=== PATIENT | female | born 1970 | race African-American/Black ===

== ENCOUNTER 2024-04-10 10:40 | Inpatient (IN) | payer OTHER ==
[~2024-04-10] VITALS: Ht 180.3 cm; Wt 94.6 kg
--- NOTE | 2024-04-10 11:04 | ED.PDOC ---
GI ASSESSMENT HPI Comments 54y F who presents to the ED for chief complaint of abdominal pain. Pt states she has been having abdominal pain for the past 3 weeks. Pt states her pain is located by the lower pelvic area, radiating to the lower back, constant, rating the pain 6/10, with no associated exacerbating or relieving factors. pt has associated chills, weakness but otherwise denies nausea, vomiting, diarrhea, fever, cough, dysuria or hematuria. Pt denies any fall or injury. Pt denies any recent sick contacts. Pt otherwise denies any other symptoms at this time. Chief Complaint: Abdominal Pain Time Seen by MD: 11:00 Reviewed Notes: Nurses Notes, Medications Allergies: Coded Allergies: NO KNOWN ALLERGIES (Unverified , 04/10/24) Information Source: Patient Mode of Arrival: Ambulatory Brought in by: self Timing: Weeks Duration: Since onset Prehospital treatment: None Quality: None Vomitus: None Stool: Normal Severity: Moderate Recent: None Recent Hx of: None Pain Location: Diffuse Modifying Factors: Nothing Associated sign and symptoms: Abdominal Pain, Other (chills) Past Medical History PAST MEDICAL HISTORY: DM Surgical History: Hernia Repair KEY ACCOUNT DIRECTOR History: Denies all KEY ACCOUNT DIRECTOR Hx Family History Family History: Family hx of DM Social History Smoker: Non-Smoker Alcohol: Occasionally Drugs: Denies Drug Use Lives In: Home Constitutional: reports: chills, weakness; denies: diaphoresis, fatigue, fever, malaise, sweats, others EENTM: denies: blurred vision, double vision, ear bleeding, ear discharge, ear drainage, ear pain, ear ringing, eye pain, eye redness, hearing loss, mouth pain, mouth swelling, nasal discharge, nose bleeding, nose congestion, nose pain, photophobia, tearing, throat pain, throat swelling, voice changes, others Respiratory: denies: cough, hemoptysis, orthopnea, SOB at rest, shortness of breath, SOB with excertion, stridor, wheezing, others Cardiovascular: denies: chest pain, dizzy spells, diaphoresis, Dyspnea on exertion, edema, irregular heart beat, left arm pain, lightheadedness, palpit ations, PND, syncope, others Gastrointestinal: reports: abdominal pain; denies: abdomen distended, blood streaked bowels, diarrhea, dysphagia, difficulty swallowing, hematemesis, melena, nausea, poor appetite, poor fluid intake, rectal bleeding, rectal pain, vomiting, others Genitourinary: denies: abnormal vagina bleeding, burning, dyspareunia, dysuria, flank pain, frequency, hematuria, incontinence, pain, , vagina discharge, urgency, others Neurological: denies: dizziness, fainting, headache, left sided numbness, left sided weakness, numbness, paresthesia, pre-existing deficit, right sided numbness, right sided weakness, seizure, speech problems, tingling, tremors, weakness, others Musculoskeletal: denies: back pain, gout, joint pain, joint swelling, muscle pain, muscle stiffness, neck pain, others Integumetry: denies: bruises, change in color, change in hair/nails, dryness, laceration, lesions, lumps, rash, wounds, others Allergic/Immunocompromised: denies: Difficulty Healing, Frequent Infections, Hives, Itching, others Hematologic/Lymphatic: denies: anemia, blood clots, easy bleeding, easy bruising, swollen glands, others Endocrine: denies: excessive hunger, excessive sweating, excessive thirst, excessive urination, flushing, intolerance to cold, intolerance to heat, unexplained weight gain, unexplained weight loss, others Psychiatric: denies: anxiety, bipolar disorder, depression, hopeless, panic disorder, schizophrenia, sleepless, suicidal, others All Other Systems: Reviewed and Negative Physical Exam General Appearance: Moderate Distress HEENT: Normal ENT Inspection, Pharynx Normal, TMs Normal Neck: Full Range of Motion, Non-Tender, Normal, Normal Inspection Respiratory: Chest Non-Tender, Lungs Clear, No Accessory Muscle Use, No Respiratory Distress, Normal Breath Sounds Cardiovascular: No Edema, No JVD, No Murmur, No Gallop, Normal Peripheral Pulses, Regular Rate/Rhythm Breast Exam: Deferred Gastrointestinal: No Organomegaly, No Pulsatile Mass, Normal Bowel Sounds, Soft, Suprapubic, Tenderness Genitalia: Deferred Pelvic: Deferred Rectal: Deferred Extremities: No calf tenderness, Normal capillary refill, Normal inspection, Normal range of motion, Non-tender, No pedal edema Musculoskeletal : Apperance: Normal Neurologic: Alert, signal manager II-XII nml as Tested, No Motor Deficits, Normal Affect, Normal Mood, No Sensory Deficits Cerebellar Function: Normal Reflexes: Normal Skin: Dry, Normal Color, Warm Lymphatic: No Adenopathy Was a procedure done? Was a procedure done?: No GI differential Dx Differential Diagnosis: Cholangitis, Cholecystitis, Constipation, Gastroenteritis, Pancreatitis, UTI, Dehydration, Kidney Stone X-Ray, Labs, Meds, VS Vital Signs Date Time Temp Pulse Resp B/P (MAP) Pulse Ox O2 Delivery O2 Flow Rate FiO2 04/10/24 10:52 97.7 95 18 107/80 (89) 100 Lab Test 04/10/24 10:58 04/10/24 10:31 Range/Units White Blood Count 7.6 4.4-10.8 10^3/uL Red Blood Count 5.06 4.0-5.20 10^6/uL Hemoglobin 15.7 12.2-16.2 g/dL Hematocrit 46.7 H 36.0-46.0 % Mean Corpuscular Volume 92.4 80.0-100.0 fL Mean Corpuscular Hemoglobin 30.9 28.0-32.0 pg Mean Corpuscular Hemoglobin Concent 33.5 32.0-36.0 g/dL Red Cell Distribution Width 13.4 11.8-14.3 % Platelet Count 188 140-450 10^3/uL Mean Platelet Volume 9.0 6.9-10.8 fL Neutrophils (%) (Auto) 62.0 37.0-80.0 % Lymphocytes (%) (Auto) 29.6 10.0-50.0 % Monocytes (%) (Auto) 7.5 0.0-12.0 % Eosinophils (%) (Auto) 0.6 0.0-7.0 % Basophils (%) (Auto) 0.3 0.0-2.0 % Neutrophils # (Auto) 4.7 1.6-8.6 10 ^3/uL Lymphocytes # (Auto) 2.3 0.4-5.4 10 ^3/uL Monocytes # (Auto) 0.6 0-1.3 10 ^3/uL Eosinophils # (Auto) 0 0-0.8 10 ^3/uL Basophils # (Auto) 0 0-0.2 10 ^3/uL Nucleated Red Blood Cells 0.1 % Sodium Level 138 136-145 mmol/L Potassium Level 4.2 3.5-5.1 mmol/L Chloride Level 106 98-107 mmol/L Carbon Dioxide Level 27 20-31 mmol/L Anion Gap 5 5-15 Blood Urea Nitrogen 14 9-23 mg/dL Creatinine 0.92 0.550-1.02 mg/dL Glomerular Filtration Rate Calc 74 >90 mL/min BUN/Creatinine Ratio 15.2 10.0-20.0 Serum Glucose 113 H 74-106 mg/dL Calcium Level 10.6 H 8.7-10.4 mg/dL Total Bilirubin 0.6 0.2-1.0 mg/dL Aspartate Amino Transferase (AST) 28 13-40 U/L Alanine Aminotransferase (ALT) 60 H 7-40 U/L Alkaline Phosphatase 78 46-116 U/L Total Protein 7.8 5.7-8.2 g/dL Albumin 4.6 3.2-4.8 g/dL Lipase 48 12-53 U/L Urine Color Yellow Yellow Urine Clarity Clear Clear Urine pH 5.5 5.0-9.0 Urine Specific [place] 1.020 1.001-1.035 Urine Protein Negative Negative Urine Ketones Negative Negative Urine Blood Negative Negative /uL Urine Nitrite Negative Negative Urine Bilirubin Negative Negative Urine Urobilinogen Normal Negative mg/dL Urine Leukocyte Esterase Negative Negative /uL Urine RBC <1 0 - 4 /hpf Urine WBC 1 0 - 5 /hpf Urine Squamous Epithelial Cells Few <5 /hpf Urine Bacteria None seen None Seen /hpf Urine Glucose 3+ H Normal mg/dL PROCEDURE(s): ABPL - CT AB PEL WO CON-NO ORAL OR IV IMPRESSION: 1. There is no acute process in the abdomen and pelvis. 2. Large bulky fibroid uterus. Further evaluation with dedicated pelvic ult rasound is recommended. The patient's urine test is negative The patient's CBC and chemistry panel is within normal limits At this time, the patient will be admitted to the hospitalist with significant pain. The patient was being given morphine for the pain and Zofran for the nausea At this time, the patient understands and agrees with the management. Images Reviewed?: Images reviewed and evaluated by me Time of 1ST Reevaluation: 11:30 Reevaluation 1ST: Unchanged Patient Education/Counseling: Diagnosis, Treatment, Prognosis Family Education/Counseling: No Family Present Additional Information - I reviewed the following notes from patient's past medical encounters: - The following tests were ordered, and results were reviewed by me: (Labs, X- Ray, EKG): cbc, cmp, lipase, UA, CT abdomen and pelvis without contrast, - Additional information was gathered from interviewing the following independent Historian: (Family, Other Providers, EMT): none - I reviewed and agreed with the following test results read by other provider: (X-ray, CT, US): radiologist - I discussed treatments and results with medical personnel and: (consultants, family): none Departure 1 Departure Time of Disposition: 12:35 Impression: Primary Impression: Intractable abdominal pain Additional Impression: Fibroid uterus Qualified Codes: D25.9 - Leiomyoma of uterus, unspecified Disposition: ADMITTED INPATIENT Admit to: Med Surg Condition: Fair Critical Care Note Critical Care Time?: No Stability Stability form required: No Heart Score Heart Score: Heart Score Response (Comments) Value History N/A 0 EKG N/A 0 Age N/A 0 Risk Factors N/A 0 Troponin N/A 0 Total 0 I personally scribed for CHLOE NGUYEN MD ([email or web address]) on 04/10/24 at 11:04. Electronically submitted by Michelle Ruiz ([employer]). I personally scribed for CHLOE NGUYEN MD ([email or web address]) on 04/10/24 at 11:27. Electronically submitted by Michelle Ruiz ([email or web address] CHLOE NGUYEN MD Apr 10, 2024 11:04
[2024-04-10 11:14] LABS: Basophils # (auto) 0 10 ^3/uL (0-0.2); Basophils % (auto) 0.3 % (0.0-2.0); Eosinophils # (auto) 0 10 ^3/uL (0-0.8); Eosinophils % (auto) 0.6 % (0.0-7.0); Hematocrit 46.7 % (36.0-46.0); Hemoglobin 15.7 g/dL (12.2-16.2); Lymphocytes # (auto) 2.3 10 ^3/uL (0.4-5.4); Lymphocytes % (auto) 29.6 % (10.0-50.0); Mean Corpuscular Hemoglobin 30.9 pg (28.0-32.0); Mean Corpuscular Hgb Conc. 33.5 g/dL (32.0-36.0); Mean Corpuscular Volume 92.4 fL (80.0-100.0); Monocytes # (auto) 0.6 10 ^3/uL (0-1.3); Monocytes % (auto) 7.5 % (0.0-12.0); Neutrophils # (auto) 4.7 10 ^3/uL (1.6-8.6); Nucleated Red Blood Cells % 0.1 %; Platelet Count (auto) 188 10^3/uL (140-450); Red Blood Cells 5.06 10^6/uL (4.0-5.20); Red Cell Distribution Width 13.4 % (11.8-14.3); White Blood Cell 7.6 10^3/uL (4.4-10.8)
--- NOTE | 2024-04-10 11:24 | DVH ---
CT ABDOMEN AND PELVIS WITHOUT CONTRAST CLINICAL HISTORY: pain TECHNIQUE: Multiple contiguous axial images of the abdomen and pelvis without intravenous contrast. The images were reformatted degenerate coronal and sagittal reconstructions. All CT scans at this medical facility are performed using dose modulation techniques as appropriate t o a performed exam including the following:Automated exposure control was utilized; adjustment of the MA and/or KV according to patient size; and use of iterative reconstruction technique. Radiation Dose Information: CT Dose: CTDI volume is 10.87 mGy. Dose-length product is 575.29 mGy*cm Comparison: None FINDINGS: Evaluation of the abdomen and pelvis is limited without intravenous contrast. The liver, gallbladder, pancreas, kidneys, adrenal glands, and spleen appear within normal limits. There is no gross evidence of abdominal lymphadenopathy. There is no free fluid or free air. The stomach grossly appears unremarkable. The small and large bowel loops demonstrate normal caliber . The abdominal aorta and IVC appear within normal limits. The bladder is decompressed limiting evaluation. There is a large bulky uterus with multiple leiomyom as, the largest measuring approximately 7.2 cm.. There is no gross evidence of a pelvic mass. There is no free fluid collection. Lung bases are clear. There is no acute osseous abnormality. IMPRESSION: 1. There is no acute process in the abdomen and pelvis. 2. Large bulky fibroid uterus. Further evaluation with dedicated pelvic ultrasound is recommended. HS:Y
[2024-04-10 11:46] LABS: Anion Gap 5 (5-15); BUN/Creatinine Ratio 15.2 (10.0-20.0); Blood Urea Nitrogen 14 mg/dL (9-23); Carbon Dioxide 27 mmol/L (20-31); Chloride 106 mmol/L (98-107); Potassium 4.2 mmol/L (3.5-5.1); Sodium 138 mmol/L (136-145); Total Protein 7.8 g/dL (5.7-8.2)
[2024-04-10 11:47] LABS: Alanine Aminotransferase 60 U/L (7-40); Calcium 10.6 mg/dL (8.7-10.4); Glucose 113 mg/dL (74-106)
[2024-04-10 11:48] LABS: Albumin 4.6 g/dL (3.2-4.8); Alkaline Phosphatase 78 U/L (46-116); Aspartate Aminotransferase 28 U/L (13-40); Bilirubin, Total 0.6 mg/dL (0.2-1.0)
[2024-04-10 12:00] LABS: Lipase 48 U/L (12-53)
[2024-04-10 12:05] LABS: Urine Bacteria None Seen /hpf (None Seen)
[2024-04-10 12:26] LABS: Urine Blood Negative /uL (Negative); Urine Clarity Clear (Clear); Urine Color Yellow (Yellow); Urine Protein, UAD Negative (Negative); Urine Squamous Epithelial Cell FEW /hpf (<5); Urine Urobilinogen Normal (Negative); Urine WBC 1 /hpf (0 - 5); Urine pH 5.5 (5.0-9.0)
--- NOTE | 2024-04-10 13:05 | DVHHP2 ---
History of Present Illness Reason for Visit: abd pain History of Present Illness 54-year-old female past medical history diabetes surgical history hernia repair myomectomy with clips in the fibroids chief complaint patient states she has been dealing with abdominal pain pelvic pain for three weeks now she states the pain is in the right lower quadrant radiates to her right flank. She states the pain is worse with moving and bending down to her toes she states when she has been attempting told her pain that is more severe. Patient denies vomiting denies any fever denies any chest pain denies any shortness of the breath patient denies any urinary symptoms no flank pain. Patient denies any vaginal bleeding no pain with sex no odor no discharge. When evaluating patient's labs and imaging CBC was unremarkable glucose was 113 UA showed glucose, no bacteria illness CT scan of the abdomen pelvis showed bulky fibroid otherwise unremarkable. With these findings we will admit patient and ask for litigator consult Past Medical History Diabetes Past Surgical History Hernia repair clips in the fibroid from a myomectomy, fibroid Family History Reviewed, non-contributory to the management of this case. Past Social History Patient does drink occasionally but denies drug or alcohol use Review of Systems Constitutional: No: Fever, Chills, Sweats, Weakness, Malaise, Other Eyes: No: Pain, Vision change, Conjunctivae inflammation, Eyelid inflammation, Other, Redness ENT: No: Ear pain, Ear discharge, Nose pain, Nose discharge, Nose congestion, Mouth pain, Mouth swelling, Throat pain, Throat swelling, Other Respiratory: No: Cough, Dry, Shortness of breath, SOB with excertion, Wheezing, Hemoptysis, Pleuritic Pain, Sputum, Wheezing, Other Cardiovascular: No: Chest Pain, Palpitations, Orthopnea, Paroxysmal Noc. Dyspnea, Edema, Lt Headedness, Other Gastrointestinal: Nausea, Vomiting, Abdominal Pain; No: Diarrhea, Constipation, Melena, Hematochezia, Other Genitourinary: No Dysuria, No Frequency, No Incontinence, No Hematuria, No Retention, No Other Musculoskeletal: No: other, neck pain, shoulder pain, arm pain, back pain, hand pain, leg pain, foot pain Skin: No: Rash, Lesions, Jaundice, Bruising, Other Neurological: No: Weakness, Numbness, Incoordination, Change in speech, Confusion, Seizures, Other Allergies: Coded Allergies: NO KNOWN ALLERGIES (Unverified , 04/10/24) Exam Vital Signs Vital Signs Date Time Temp Pulse Resp B/P (MAP) Pulse Ox O2 Delivery O2 Flow Rate FiO2 04/10/24 10:52 97.7 95 18 107/80 (89) 100 General Appearance: Alert, Oriented X3, Cooperative, No acute distress HEENT: Atraumatic, PERRLA, EOMI, Mucous membr. moist/pink Respiratory: Clear to auscultation, Normal air movement Cardiovascular: Regular rate, Normal S1, Normal S2, No murmurs Abdominal: Normal bowel sounds, Soft, No hepatospenomegaly, No masses, Other (+guarding and rebound tenderness) Extremities: No clubbing, No cyanosis, No edema, Normal pulses, No tenderness/swelling Skin: No rashes, No breakdown, No significant lesion Neuro: Normal gait, Normal speech, Strength at 5/5 X4 ext, Normal tone, Sensation intact, Cranial nerves 3-12 NL Psych/Mental Status: Mental status NL, Mood NL Labs/Xrays CT scan of the abdomen pelvis shows bulky fibroid I reviewed labs, imaging CT scan abdomen pelvis, EKG and all diagnostic studies on this patient from ED records and the medical chart Labs Test 04/10/24 10:58 04/10/24 10:31 Range/Units White Blood Count 7.6 4.4-10.8 10^3/uL Red Blood Count 5.06 4.0-5.20 10^6/uL Hemoglobin 15.7 12.2-16.2 g/dL Hematocrit 46.7 H 36.0-46.0 % Mean Corpuscular Volume 92.4 80.0-100.0 fL Mean Corpuscular Hemoglobin 30.9 28.0-32.0 pg Mean Corpuscular Hemoglobin Concent 33.5 32.0-36.0 g/dL Red Cell Distribution Width 13.4 11.8-14.3 % Platelet Count 188 140-450 10^3/uL Mean Platelet Volume 9.0 6.9-10.8 fL Neutrophils (%) (Auto) 62.0 37.0-80.0 % Lymphocytes (%) (Auto) 29.6 10.0-50.0 % Monocytes (%) (Auto) 7.5 0.0-12.0 % Eosinophils (%) (Auto) 0.6 0.0-7.0 % Basophils (%) (Auto) 0.3 0.0-2.0 % Neutrophils # (Auto) 4.7 1.6-8.6 10 ^3/uL Lymphocytes # (Auto) 2.3 0.4-5.4 10 ^3/uL Monocytes # (Auto) 0.6 0-1.3 10 ^3/uL Eosinophils # (Auto) 0 0-0.8 10 ^3/uL Basophils # (Auto) 0 0-0.2 10 ^3/uL Nucleated Red Blood Cells 0.1 % Sodium Level 138 136-145 mmol/L Potassium Level 4.2 3.5-5.1 mmol/L Chloride Level 106 98-107 mmol/L Carbon Dioxide Level 27 20-31 mmol/L Anion Gap 5 5-15 Blood Urea Nitrogen 14 9-23 mg/dL Creatinine 0.92 0.550-1.02 mg/dL Glomerular Filtration Rate Calc 74 >90 mL/min BUN/Creatinine Ratio 15.2 10.0-20.0 Serum Glucose 113 H 74-106 mg/dL Calcium Level 10.6 H 8.7-10.4 mg/dL Total Bilirubin 0.6 0.2-1.0 mg/dL Aspartate Amino Transferase (AST) 28 13-40 U/L Alanine Aminotransferase (ALT) 60 H 7-40 U/L Alkaline Phosphatase 78 46-116 U/L Total Protein 7.8 5.7-8.2 g/dL Albumin 4.6 3.2-4.8 g/dL Lipase 48 12-53 U/L Urine Color Yellow Yellow Urine Clarity Clear Clear Urine pH 5.5 5.0-9.0 Urine Specific [place] 1.020 1.001-1.035 Urine Protein Negative Negative Urine Ketones Negative Negative Urine Blood Negative Negative /uL Urine Nitrite Negative Negative Urine Bilirubin Negative Negative Urine Urobilinogen Normal Negative mg/dL Urine Leukocyte Esterase Negative Negative /uL Urine RBC <1 0 - 4 /hpf Urine WBC 1 0 - 5 /hpf Urine Squamous Epithelial Cells Few <5 /hpf Urine Bacteria None seen None Seen /hpf Urine Glucose 3+ H Normal mg/dL Assessment/Plan Assessment/Plan acute intractable pelvic pain CT scan shows acute fibroid ordered morphine as needed diet as can tolerated acute uterine fibroid no abscess will need to evaluate for torsion found on ct scan ordered morphine as needed for pain litigator consult fu results ordered us fu results chronic problems dm fen/ppx diet scd ivf no gi ppx since no hx of gerds or gi bleed plan admit to medicine litigator evaluation Plan discussed with: Patient Date of Service: Apr 10, 2024 Billing Provider: NEENA CHANDRA DNP Common Visit Codes: [id number] INP/OBS CARE (HIGH) NEENA CHANDRA DNP Apr 10, 2024 13:05
[2024-04-10] MEDS ORDERED: NITROGLYCERIN 0.4 MG SL TAB SL PRN (14:15)
[2024-04-10] MEDS ORDERED: ONDANSETRON HCL 4 MG/2 ML VIAL IV PRN (14:15)
[2024-04-10] MEDS ORDERED: DOCUSATE SOD 100 MG CAP PO PRN (14:15)
--- NOTE | 2024-04-10 14:33 | DVHINCON2 ---
DATE OF CONSULTATION: 04/10/2024 REASON FOR CONSULTATION: Enlarged fibroid uterus. HISTORY OF PRESENT ILLNESS: The patient is a 54-year-old 5, para 4, admitted for abdominal pain. The patient has diabetes. She just moved down the hill. She states she had uterine artery embolization in 2022. Last Pap was 6 months ago. Denies having any vaginal bleeding or abnormal uterine bleeding. The patient believes she is menopausal. PAST MEDICAL HISTORY: Diabetes. PAST SURGICAL HISTORY: Uterine artery embolization. SOCIAL HISTORY: None. FAMILY HISTORY: None. OBSTETRIC AND GYNECOLOGIC HISTORY: Four normal vaginal deliveries. REVIEW OF SYSTEMS: Consistent with HPI. PHYSICAL EXAMINATION: VITAL SIGNS: Stable, afebrile. HEENT: Within normal limits. CARDIOVASCULAR: Regular rate and rhythm. LUNGS: Clear to auscultation. BREASTS: Symmetrical. No masses. ABDOMEN: Soft, midline mass palpated. PELVIC: The patient refuses pelvic examination at this point. Uterus is enlarged. EXTREMITIES: There is no clubbing, cyanosis or edema. IMPRESSION: * Leiomyomatous uterus, status post uterine artery embolization in 2022. * Abdominal pain. * Diabetes. RECOMMENDATION: Obtained pelvic ultrasound. Abdominal pain does not appear to be originating from the fibroid uterus. Follow up outpatient. We will sign off. Thank you very much for this consultation. DO NIRU Doan TID: [id number] RECEIPT: [id number]
--- NOTE | 2024-04-10 14:56 | DVH ---
TRANSABDOMINAL PELVIC ULTRASOUND HISTORY: fibroid TECHNIQUE: Multiple tranabdominal sonographic images of the pelvis were obtained. FINDINGS: The uterus measures 15.1 x 12.3 x 7.1 cm. The uterine myometrium appears diffusely heterogeneous. T here are multiple leiomyomas including a large 6.7 x 6.1 cm leiomyoma in the central body effacing th e endometrial stripe which is not adequately seen. The right and left ovaries are not adequately seen on the current study. There is no free fluid in the cul-de-sac.. IMPRESSION: 1. Large bulky uterus with multiple leiomyomas, the largest in the central body measuring 6.7 cm. The endometrial stripe is not adequately seen. 2. Nonvisualization of the ovaries. HS:Y
[2024-04-10 15:31] VITALS: BP 113/77; PULSE 88; RESP 16; TEMP 97.9; O2SAT 100
[2024-04-10] MEDS: SODIUM CHLORIDE 0.9% 1,000 ML IV SCH (16:27)
[2024-04-10 16:29] VITALS: PULSE 80; RESP 16
[2024-04-10 20:00] VITALS: BP 113/73; PULSE 77; RESP 18; TEMP 98.7; O2SAT 95
[2024-04-10] MEDS ORDERED: DEXTROSE (50%) 50ML SYRG IV PRN (20:00)
[2024-04-10] MEDS: ACCU-CHEK COMFORT CURVE STRIP VI SCH (21:04)
[2024-04-10] MEDS: InsuLIN REG 1unit/0.01ml Soln (100units/ml) SC SCH (21:13)
[2024-04-10 23:13] VITALS: BP 114/75; PULSE 76; RESP 18; TEMP 98.3; O2SAT 92
[2024-04-11] VITALS (8 sets, daily range): BP systolic 105–114; BP diastolic 63–77; PULSE 68–85; RESP 16–20; TEMP 98–98.6; O2SAT 91–98
[2024-04-11] MEDS: MORPHINE SULFATE INJ 2 MG/ml SYRG IV PRN (00:53)
[2024-04-11] MEDS ORDERED: METF-370 PO (03:21)
[2024-04-11] MEDS ORDERED: INSLANTI SC (03:24)
[2024-04-11] MEDS ORDERED: INSU100I54 SC (03:24)
[2024-04-11 06:07] LABS: Basophils # (auto) 0 10 ^3/uL (0-0.2); Basophils % (auto) 0.3 % (0.0-2.0); Eosinophils # (auto) 0 10 ^3/uL (0-0.8); Eosinophils % (auto) 0.6 % (0.0-7.0); Hematocrit 41.4 % (36.0-46.0); Hemoglobin 14.1 g/dL (12.2-16.2); Lymphocytes % (auto) 26.1 % (10.0-50.0); Mean Corpuscular Hemoglobin 31.2 pg (28.0-32.0); Monocytes # (auto) 0.7 10 ^3/uL (0-1.3); Monocytes % (auto) 9.8 % (0.0-12.0); Neutrophils # (auto) 4.7 10 ^3/uL (1.6-8.6); Neutrophils % (auto) 63.2 % (37.0-80.0); Platelet Count (auto) 155 10^3/uL (140-450); Red Cell Distribution Width 13.5 % (11.8-14.3); White Blood Cell 7.5 10^3/uL (4.4-10.8)
[2024-04-11 06:41] LABS: Alkaline Phosphatase 68 U/L (46-116); Anion Gap 7 (5-15); Aspartate Aminotransferase 25 U/L (13-40); BUN/Creatinine Ratio 14.7 (10.0-20.0); Bilirubin, Total 0.5 mg/dL (0.2-1.0); Blood Urea Nitrogen 11 mg/dL (9-23); Calcium 9.9 mg/dL (8.7-10.4); Carbon Dioxide 23 mmol/L (20-31); Potassium 4.3 mmol/L (3.5-5.1); Sodium 139 mmol/L (136-145)
[2024-04-11 06:42] LABS: Total Protein 6.6 g/dL (5.7-8.2)
[2024-04-11 06:44] LABS: Alanine Aminotransferase 46 U/L (7-40); Chloride 109 mmol/L (98-107); Glucose 133 mg/dL (74-106)
[2024-04-11] MEDS: InsuLIN REG 1unit/0.01ml Soln (100units/ml) SC SCH (07:05)
--- NOTE | 2024-04-11 13:12 | DVHPN2 ---
Reviewed: Care Plan, H&P, Labs, Medications, Previous Orders, Radiology Changes from previous H/P or p: No Changes Eyes: No Pain, No Vision change, No Conjunctivae inflammation, No Eyelid inflammation, No Other, No Redness ENT: No Ear pain, No Ear discharge, No Nose pain, No Nose discharge, No Nose congestion, No Mouth pain, No Mouth swelling, No Throat pain, No Throat swelling, No Other Cardiovascular: No Chest Pain, No Palpitations, No Orthopnea, No Paroxysmal Noc. Dyspnea, No Edema, No Lt Headedness, No Other Respiratory: No Cough, No Dry, No Shortness of breath, No SOB with excertion, No Wheezing, No Hemoptysis, No Pleuritic Pain, No Sputum, No Other Gastrointestinal: Nausea, Vomiting, Abdominal Pain; No Diarrhea, No Constipation, No Melena, No Hematochezia, No Other Genitourinary: No Dysuria, No Frequency, No Incontinence, No Hematuria, No Retention, No Other Musculoskeletal: No other, No neck pain, No shoulder pain, No arm pain, No back pain, No hand pain, No leg pain, No foot pain Skin: No Rash, No Lesions, No Jaundice, No Bruising, No Other Objective Vitals Vital Signs Date Time Temp Pulse Resp B/P (MAP) Pulse Ox O2 Delivery O2 Flow Rate FiO2 04/11/24 11:29 83 16 105/77 04/11/24 08:49 98.3 93 98.3 04/11/24 00:46 Room Air* 0 21 Intake/Output Intake and Output 04/11/24 07:00 Intake Total 0 ml Balance 0 ml Intake Oral 0 ml # Voids 1 Medications Current Medications Medications Dose Ordered Sig/Bob Route Start Time Stop Time Status Last Admin Dose Admin Sodium Chloride 1,000 ml @ 120 mls/hr Q8H20M IV 04/10/24 14:15 04/11/24 11:10 120 MLS/HR Ondansetron HCl 4 mg Q4HP PRN IV 04/10/24 14:15 Docusate Sodium 100 mg BIDPRN PRN PO 04/10/24 14:15 Morphine Sulfate 2 mg Q4HPRN PRN IV 04/10/24 14:15 04/11/24 11:29 2 MG Nitroglycerin 0.4 mg Q5MINP PRN SL 04/10/24 14:15 Diagnostic Test (Pha) 1 strip ACHS 04/10/24 22:00 04/11/24 12:41 1 STRIP Insulin Human Regular HS SC 04/10/24 22:00 04/10/24 21:13 2 UNITS Insulin Human Regular AC SC 04/11/24 07:00 04/11/24 07:05 2 UNITS Dextrose 50 ml UD PRN IV 04/10/24 20:00 Laboratory Results Laboratory Tests 04/11/24 05:43 Chemistry Test 04/11/24 05:43 Albumin 4.0 g/dL (3.2-4.8) Calcium Level 9.9 mg/dL (8.7-10.4) Total Protein 6.6 g/dL (5.7-8.2) LFT Test 04/11/24 05:43 Alanine Aminotransferase (ALT) 46 U/L (7-40) H Alkaline Phosphatase 68 U/L (46-116) Aspartate Amino Transferase (AST) 25 U/L (13-40) Total Bilirubin 0.5 mg/dL (0.2-1.0) Urinalysis Test 04/10/24 10:31 Urine Color Yellow (Yellow) Urine Clarity Clear (Clear) Urine pH 5.5 (5.0-9.0) Urine Specific [place] 1.020 (1.001-1.035) Urine Protein Negative (Negative) Urine Ketones Negative (Negative) Urine Blood Negative /uL (Negative) Urine Nitrite Negative (Negative) Urine Bilirubin Negative (Negative) Urine Urobilinogen Normal mg/dL (Negative) Urine Leukocyte Esterase Negative /uL (Negative) Urine RBC <1 /hpf (0 - 4) Urine WBC 1 /hpf (0 - 5) Urine Squamous Epithelial Cells Few /hpf (<5) Urine Bacteria None seen /hpf (None Seen) Urine Glucose 3+ mg/dL (Normal) H Labs and/or images reviewed: Labs reviewed by me, Image(s) reviewed by me Assessment/Plan Assessment/Plan Acute Abdominal pain unknown etiology: Labs normal CT abdomen pelvis without contrast shows fibroids Consult for GI Dr. Balbuena Multiple fibroids: Table Tender Sludge consult by Dr. Baker appreciated advised outpatient follow up History of surgery for hernia Plan discussed with: Patient My Orders Orders - CATHY VILLARREAL MD Procedure Category Date Status Time * Gi [facility] [employer] [facility] CONS 04/11/24 Verified 13:04 Date of Service: Apr 11, 2024 Billing Provider: CATHY VILLARREAL MD Common Visit Codes: [id number] INP/OBS CARE(HIGH) CATHY VILLARREAL MD Apr 11, 2024 13:12
--- NOTE | 2024-04-11 15:32 | DVHINCON2 ---
Date of service: Apr 11, 2024 Referring Physician Blas Richards Reason for Consultation 54-year-old female past medical history diabetes surgical history hernia repair myomectomy with clips in the fibroids chief complaint patient states she has been dealing with abdominal pain pelvic pain for three weeks now she states the pain is in the right lower quadrant radiates to her right flank. She states the pain is worse with moving and bending down to her toes she states when she has been attempting told her pain that is more severe. Patient denies vomiting denies any fever denies any chest pain denies any shortness of the breath patient denies any urinary symptoms no flank pain. Patient denies any vaginal bleeding no pain with sex no odor no discharge. When evaluating patient's labs and imaging CBC was unremarkable glucose was 113 UA showed glucose, no bacteria illness CT scan of the abdomen pelvis showed bulky fibroid otherwise unremarkable. With these findings we will admit patient and ask for manager contract consult History of Present Illness 54-year-old female past medical history diabetes surgical history hernia repair myomectomy with clips in the fibroids chief complaint patient states she has been dealing with abdominal pain pelvic pain for three weeks now she states the pain is in the right lower quadrant radiates to her right flank. She states the pain is worse with moving and bending down to her toes she states when she has been attempting told her pain that is more severe. Patient denies vomiting denies any fever denies any chest pain denies any shortness of the breath patient denies any urinary symptoms no flank pain. Patient denies any vaginal bleeding no pain with sex no odor no discharge. Patient was seen by OBGYN consult. She has been diagnosed with aLeiomyomatous uterus, status post uterine artery embolization in 2022. Past Medical History Past Medical History Diabetes Past Surgical History Past Surgical History Hernia repair clips in the fibroid from a myomectomy, fibroid Family History: FH: kidney failure G8 MOTHER Allergies: Coded Allergies: NO KNOWN ALLERGIES (Unverified , 04/10/24) Home Meds Reported Medications Insulin Glargine (Lantus) 100 Unit/Ml Inj, 10 UNIT SC HS, INJ 04/11/24 Insulin Lispro (Insulin Lispro Kwikpen) 100 Unit/Ml Inj, 100 UNIT SC BS, INJ 04/11/24 Metformin Hydrochloride (Metformin Hcl) 500 Mg Tab, 500 MG PO BID for 30 Days, MG 04/11/24 Current Medications Current Medications Medications (Trade) Dose Ordered Sig/Bob Route PRN Reason Start Time Stop Time Status Last Admin Diagnostic Test (Pha) (Accu-Chek Comfort Curve T) 1 strip ACHS 04/10/24 22:00 04/11/24 12:41 Insulin Human Regular (InsuLIN R) HS SC 04/10/24 22:00 04/10/24 21:13 Insulin Human Regular (InsuLIN R) AC SC 04/11/24 07:00 04/11/24 07:05 Dextrose 50 ml UD PRN IV Blood Sugar LESS THAN 60 04/10/24 20:00 Vital Signs Vital Signs Date Time Temp Pulse Resp B/P (MAP) Pulse Ox O2 Delivery O2 Flow Rate FiO2 04/11/24 13:00 79 18 101/70 04/11/24 08:49 98.3 93 98.3 04/11/24 00:46 Room Air* 0 21 Physical Exam General Appearance: Alert, Oriented X3, Cooperative, No acute distress HEENT: Atraumatic, PERRLA, EOMI, Mucous membr. moist/pink Respiratory: Clear to auscultation, Normal air movement Cardiovascular: Regular rate, Normal S1, Normal S2, No murmurs Abdominal: Normal bowel sounds, Soft, No hepatospenomegaly, No masses, obese distended with mild lower abdominal tenderness Extremities: No clubbing, No cyanosis, No edema, Normal pulses, No tenderness/swelling Skin: No rashes, No breakdown, No significant lesion Neuro: Normal gait, Normal speech, Strength at 5/5 X4 ext, Normal tone, Sensation intact, Cranial nerves 3-12 NL Psych/Mental Status: Mental status NL, Mood NL Labs/Diagnostic Data Labs Test 04/11/24 06:58 04/11/24 05:43 04/10/24 10:58 04/10/24 10:31 Range/Units POC Glucose 142 H 70-106 mg/dl White Blood Count 7.5 4.4-10.8 10^3/uL Red Blood Count 4.50 4.0-5.20 10^6/uL Hemoglobin 14.1 12.2-16.2 g/dL Hematocrit 41.4 # 36.0-46.0 % Mean Corpuscular Volume 92.0 80.0-100.0 fL Mean Corpuscular Hemoglobin 31.2 28.0-32.0 pg Mean Corpuscular Hemoglobin Concent 34.0 32.0-36.0 g/dL Red Cell Distribution Width 13.5 11.8-14.3 % Platelet Count 155 140-450 10^3/uL Mean Platelet Volume 9.2 6.9-10.8 fL Neutrophils (%) (Auto) 63.2 37.0-80.0 % Lymphocytes (%) (Auto) 26.1 10.0-50.0 % Monocytes (%) (Auto) 9.8 0.0-12.0 % Eosinophils (%) (Auto) 0.6 0.0-7.0 % Basophils (%) (Auto) 0.3 0.0-2.0 % Neutrophils # (Auto) 4.7 1.6-8.6 10 ^3/uL Lymphocytes # (Auto) 2.0 0.4-5.4 10 ^3/uL Monocytes # (Auto) 0.7 0-1.3 10 ^3/uL Eosinophils # (Auto) 0 0-0.8 10 ^3/uL Basophils # (Auto) 0 0-0.2 10 ^3/uL Nucleated Red Blood Cells 0.0 % Sodium Level 139 136-145 mmol/L Potassium Level 4.3 3.5-5.1 mmol/L Chloride Level 109 H 98-107 mmol/L Carbon Dioxide Level 23 20-31 mmol/L Anion Gap 7 5-15 Blood Urea Nitrogen 11 9-23 mg/dL Creatinine 0.75 0.550-1.02 mg/dL Glomerular Filtration Rate Calc 95 >90 mL/min BUN/Creatinine Ratio 14.7 10.0-20.0 Serum Glucose 133 H 74-106 mg/dL Calcium Level 9.9 8.7-10.4 mg/dL Total Bilirubin 0.5 0.2-1.0 mg/dL Aspartate Amino Transferase (AST) 25 13-40 U/L Alanine Aminotransferase (ALT) 46 H 7-40 U/L Alkaline Phosphatase 68 46-116 U/L Total Protein 6.6 5.7-8.2 g/dL Albumin 4.0 3.2-4.8 g/dL Lipase 48 12-53 U/L Urine Color Yellow Yellow Urine Clarity Clear Clear Urine pH 5.5 5.0-9.0 Urine Specific [place] 1.020 1.001-1.035 Urine Protein Negative Negative Urine Ketones Negative Negative Urine Blood Negative Negative /uL Urine Nitrite Negative Negative Urine Bilirubin Negative Negative Urine Urobilinogen Normal Negative mg/dL Urine Leukocyte Esterase Negative Negative /uL Urine RBC <1 0 - 4 /hpf Urine WBC 1 0 - 5 /hpf Urine Squamous Epithelial Cells Few <5 /hpf Urine Bacteria None seen None Seen /hpf Urine Glucose 3+ H Normal mg/dL CT SCAN ABD PELVIS IMPRESSION: 1. There is no acute process in the abdomen and pelvis. 2. Large bulky fibroid uterus. Further evaluation with dedicated pelvic ultrasound is recommended. Pelvic ultrasound IMPRESSION: 1. Large bulky uterus with multiple leiomyomas, the largest in the central body measuring 6.7 cm. The endometrial stripe is not adequately seen. 2. Nonvisualization of the ovaries. Problems(with codes): (1) Intractable abdominal pain (2) Fibroid uterus Plan/Recommendation Plan Patient's pain is likely related to her large multiple uterine fibroids There were no other acute abdominal pathology detected UA is negative and lab tests were normal Recommend conservative pain management Outpatient follow up with OBGYN to discuss elective hysterectomy Patient was advised follow up in my office as an outpatient for an elective colonoscopy for colon cancer screening Once again thank you for allowing me to participate in the care of this patient Plan discussed with: Patient, Other (Family at bedside and Dr Blas richards) GARRY SWIFT MD Apr 11, 2024 15:32
[2024-04-11] MEDS: DICYCLOMINE HCL 10 MG CAP PO ONE (16:06)
[2024-04-12 01:00] VITALS: BP 105/61; PULSE 73; RESP 17; TEMP 98.5; O2SAT 96
[2024-04-12 05:00] VITALS: BP 101/65; PULSE 70; RESP 18; TEMP 98.1; O2SAT 91
[2024-04-12 09:00] VITALS: BP 108/70; PULSE 77; RESP 17; TEMP 97.6; O2SAT 92
--- NOTE | 2024-04-12 11:58 | DVHPN2 ---
Reviewed: Care Plan, H&P, Labs, Medications, Previous Orders, Radiology Changes from previous H/P or p: No Changes Eyes: No Pain, No Vision change, No Conjunctivae inflammation, No Eyelid inflammation, No Other, No Redness ENT: No Ear pain, No Ear discharge, No Nose pain, No Nose discharge, No Nose congestion, No Mouth pain, No Mouth swelling, No Throat pain, No Throat swelling, No Other Cardiovascular: No Chest Pain, No Palpitations, No Orthopnea, No Paroxysmal Noc. Dyspnea, No Edema, No Lt Headedness, No Other Respiratory: No Cough, No Dry, No Shortness of breath, No SOB with excertion, No Wheezing, No Hemoptysis, No Pleuritic Pain, No Sputum, No Other Gastrointestinal: Nausea, Vomiting, Abdominal Pain; No Diarrhea, No Constipation, No Melena, No Hematochezia, No Other Genitourinary: No Dysuria, No Frequency, No Incontinence, No Hematuria, No Retention, No Other Musculoskeletal: No other, No neck pain, No shoulder pain, No arm pain, No back pain, No hand pain, No leg pain, No foot pain Skin: No Rash, No Lesions, No Jaundice, No Bruising, No Other Objective Vitals Vital Signs Date Time Temp Pulse Resp B/P (MAP) Pulse Ox O2 Delivery O2 Flow Rate FiO2 04/12/24 10:59 77 17 108/70 04/12/24 09:00 97.6 92 97.6 04/11/24 20:00 Room Air* 0 21 Intake/Output Intake and Output 04/12/24 07:00 Intake Total 2263 ml Balance 2263 ml Intake Oral 2263 ml # Voids 4 Medications Current Medications Medications Dose Ordered Sig/Bob Route Start Time Stop Time Status Last Admin Dose Admin Sodium Chloride 1,000 ml @ 120 mls/hr Q8H20M IV 04/10/24 14:15 04/12/24 09:23 120 MLS/HR Ondansetron HCl 4 mg Q4HP PRN IV 04/10/24 14:15 Docusate Sodium 100 mg BIDPRN PRN PO 04/10/24 14:15 Morphine Sulfate 2 mg Q4HPRN PRN IV 04/10/24 14:15 04/12/24 10:59 2 MG Nitroglycerin 0.4 mg Q5MINP PRN SL 04/10/24 14:15 Diagnostic Test (Pha) 1 strip ACHS 04/10/24 22:00 04/12/24 11:04 1 STRIP Insulin Human Regular HS SC 04/10/24 22:00 04/11/24 22:13 2 UNITS Insulin Human Regular AC SC 04/11/24 07:00 04/12/24 11:14 3 UNITS Dextrose 50 ml UD PRN IV 04/10/24 20:00 Laboratory Results Laboratory Tests 04/11/24 05:43 Urinalysis Test 04/10/24 10:31 Urine Color Yellow (Yellow) Urine Clarity Clear (Clear) Urine pH 5.5 (5.0-9.0) Urine Specific [place] 1.020 (1.001-1.035) Urine Protein Negative (Negative) Urine Ketones Negative (Negative) Urine Blood Negative /uL (Negative) Urine Nitrite Negative (Negative) Urine Bilirubin Negative (Negative) Urine Urobilinogen Normal mg/dL (Negative) Urine Leukocyte Esterase Negative /uL (Negative) Urine RBC <1 /hpf (0 - 4) Urine WBC 1 /hpf (0 - 5) Urine Squamous Epithelial Cells Few /hpf (<5) Urine Bacteria None seen /hpf (None Seen) Urine Glucose 3+ mg/dL (Normal) H Labs and/or images reviewed: Labs reviewed by me, Image(s) reviewed by me Assessment/Plan Assessment/Plan Acute Abdominal pain unknown etiology: Labs normal CT abdomen pelvis without contrast shows fibroids Consult for GI Dr. Alvarez Liriano appreciated, advised outpatient routine endoscopy Multiple fibroids: Dog Obedience Instructor consult by Dr. Baker appreciated advised outpatient follow up History of surgery for hernia Diabetes: Insulin sliding scale Diabetic neuropathy: Gabapentin Plan discussed with: Patient My Orders Orders - CATHY VILLARREAL MD Procedure Category Date Status Time * Gi [facility] Revenue Field Auditor CONS 04/11/24 Transmitted 14:30 Date of Service: Apr 12, 2024 Billing Provider: CATHY VILLARREAL MD Common Visit Codes: [id number] INP/OBS CARE(HIGH) CATHY VILLARREAL MD Apr 12, 2024 11:58
--- NOTE | 2024-04-12 12:03 | DVHDS2 ---
Discharge Summary Date of Admission Apr 10, 2024 at 14:12 Date of Discharge: Apr 12, 2024 Admitting Diagnosis Lower abdominal pain Wounds: None Labs/Diagnostic Data: Laboratory Results Test 04/12/24 11:00 04/11/24 05:43 04/10/24 10:58 04/10/24 10:31 POC Glucose 163 mg/dl (70-106) White Blood Count 7.5 10^3/uL (4.4-10.8) Red Blood Count 4.50 10^6/uL (4.0-5.20) Hemoglobin 14.1 g/dL (12.2-16.2) Hematocrit 41.4 % (36.0-46.0) Mean Corpuscular Volume 92.0 fL (80.0-100.0) Mean Corpuscular Hemoglobin 31.2 pg (28.0-32.0) Mean Corpuscular Hemoglobin Concent 34.0 g/dL (32.0-36.0) Red Cell Distribution Width 13.5 % (11.8-14.3) Platelet Count 155 10^3/uL (140-450) Mean Platelet Volume 9.2 fL (6.9-10.8) Neutrophils (%) (Auto) 63.2 % (37.0-80.0) Lymphocytes (%) (Auto) 26.1 % (10.0-50.0) Monocytes (%) (Auto) 9.8 % (0.0-12.0) Eosinophils (%) (Auto) 0.6 % (0.0-7.0) Basophils (%) (Auto) 0.3 % (0.0-2.0) Neutrophils # (Auto) 4.7 10 ^3/uL (1.6-8.6) Lymphocytes # (Auto) 2.0 10 ^3/uL (0.4-5.4) Monocytes # (Auto) 0.7 10 ^3/uL (0-1.3) Eosinophils # (Auto) 0 10 ^3/uL (0-0.8) Basophils # (Auto) 0 10 ^3/uL (0-0.2) Nucleated Red Blood Cells 0.0 % Sodium Level 139 mmol/L (136-145) Potassium Level 4.3 mmol/L (3.5-5.1) Chloride Level 109 mmol/L (98-107) Carbon Dioxide Level 23 mmol/L (20-31) Anion Gap 7 (5-15) Blood Urea Nitrogen 11 mg/dL (9-23) Creatinine 0.75 mg/dL (0.550-1.02) Glomerular Filtration Rate Calc 95 mL/min (>90) BUN/Creatinine Ratio 14.7 (10.0-20.0) Serum Glucose 133 mg/dL (74-106) Calcium Level 9.9 mg/dL (8.7-10.4) Total Bilirubin 0.5 mg/dL (0.2-1.0) Aspartate Amino Transferase (AST) 25 U/L (13-40) Alanine Aminotransferase (ALT) 46 U/L (7-40) Alkaline Phosphatase 68 U/L (46-116) Total Protein 6.6 g/dL (5.7-8.2) Albumin 4.0 g/dL (3.2-4.8) Lipase 48 U/L (12-53) Urine Color Yellow (Yellow) Urine Clarity Clear (Clear) Urine pH 5.5 (5.0-9.0) Urine Specific [place] 1.020 (1.001-1.035) Urine Protein Negative (Negative) Urine Ketones Negative (Negative) Urine Blood Negative /uL (Negative) Urine Nitrite Negative (Negative) Urine Bilirubin Negative (Negative) Urine Urobilinogen Normal mg/dL (Negative) Urine Leukocyte Esterase Negative /uL (Negative) Urine RBC <1 /hpf (0 - 4) Urine WBC 1 /hpf (0 - 5) Urine Squamous Epithelial Cells Few /hpf (<5) Urine Bacteria None seen /hpf (None Seen) Urine Glucose 3+ mg/dL (Normal) Other Laboratory Tests 04/11/24 05:43 Brief Hx & Hospital Course: 54-year-old female with a history of fibroids came in complaining of lower abdominal pain. Patient has a history of diabetes also complaining of bilateral feet pain. CT abdomen pelvis without contrast showed multiple fibroids. Seen by GI Dr. Alvarez Liriano. Her labs were normal. Advised no GI intervention. Seen by bucket wash operator Dr. Baker advised to follow up with her bucket wash operator for outpatient treatment of fibroids. Patient being discharged home on [address] and gabapentin Consults/Reason for consult GI Dr. Alvarez Liriano Gynecology Dr. Baker Operations or Procedures CT abdomen pelvis without contrast Condition at Discharge: Fair Final Diagnosis/Problems List Acute Abdominal pain unknown etiology: Labs normal CT abdomen pelvis without contrast shows fibroids Consult for GI Dr. Alvarez Liriano appreciated, advised outpatient routine endoscopy Multiple fibroids: Health Education Assistant consult by Dr. Baker appreciated advised outpatient follow up History of surgery for hernia Diabetes: Insulin sliding scale Diabetic neuropathy: Gabapentin Discharge Disposition: Home Discharge Instruct/Medications Diet: Consistent carbohydrate Activity: Light activity Follow Up/Referral: Follow up with your bucket wash operator regarding your fibroids Medications: Gabapentin [place] Transmitted to the pharmacy 35 (Time taken for discharge summary 35 minutes) Discharge Statement: "Patient was advised to return to the ER or call 911 if any headaches, dizziness, shortness of breath, chest pain, abdominal pain, bleeding, fevers, or worsening of medical condition. Patient was counseled about treatment plan, medications, possible side effects, patientverbalized understanding. All questions were answered to the best of my ability. This discharge took greater then 30 minutes in planning, reviewing documentation, counseling the patient, and discussing with other team members." ASSESSMENT ASSESSMENT Hospital Course Improved Assessment Acute Abdominal pain unknown etiology: Labs normal CT abdomen pelvis without contrast shows fibroids Consult for GI Dr. Alvarez Liriano appreciated, advised outpatient routine endoscopy Multiple fibroids: Health Education Assistant consult by Dr. Baker appreciated advised outpatient follow up History of surgery for hernia Diabetes: Insulin sliding scale Diabetic neuropathy: Gabapentin Date of Service: Apr 12, 2024 Billing Provider: CATHY VILLARREAL MD Common Visit Codes: [id number] DISCH DAY >30min CATHY VILLARREAL MD Apr 12, 2024 12:03
[2024-04-12] MEDS ORDERED: GABA-1250 PO (12:04)
[2024-04-12] MEDS ORDERED: HYDR-4902 PO (12:04)
[2024-04-12 12:43] VITALS: BP 108/70; PULSE 77; RESP 17; TEMP 97.6; O2SAT 92
[2024-04-12 13:00] VITALS: BP 115/71; PULSE 87; RESP 18; TEMP 97.5; O2SAT 90
== END 2024-04-12 13:56 | disposition home or self-care (01) | DRG 761 ==
LOC: ER 10:40 → TELE 14:12 → WEST WING 22:40
PROVIDERS: ADMIT Nurse Practitioner Family; ATTEND Family Medicine
DX: D25.9 Leiomyoma of uterus, unspecified (principal); E11.40 Type 2 diabetes mellitus with diabetic neuropathy, unspecified; Z83.3 Family history of diabetes mellitus; Z79.4 Long term (current) use of insulin; Z79.899 Other long term (current) drug therapy
CPT/HCPCS: 36415; 74176; 76856; 80053; 81001; 82962; 83690; 85025; 96360; G0378; J1815